=== PATIENT | female | born 1970 | race American Indian/Alaskan Native ===

== ENCOUNTER 2022-06-19 07:00 | Day surgery (SDC) | payer MEDICAID, OTHER ==
[2022-06-19] MEDS ORDERED: LIDOCAINE (1%) 10 MG/1 ML VIAL 20 ML MDV ONE (07:21)
[2022-06-19] MEDS ORDERED: BUPIVACAINE/PF (0.25%) 2.5 MG/ML 30 ML VIAL INFILTRATI ONE (07:21)
[2022-06-19] MEDS ORDERED: BUPIVACAINE/PF (0.5%) 5 MG/1 ML 30 ML VIAL INFILTRATI ONE (08:23)
[2022-06-19] MEDS ORDERED: LIDOCAINE (1%) 10 MG/1 ML VIAL 20 ML MDV INFILTRATI ONE (08:24)
--- NOTE | 2022-06-19 12:22 | Procedure Note ---
Date of procedure: 06/19/22 Pre-op diagnosis: soft tissue mass suprapubic abdominal wall Post-op diagnosis: same Procedure: excision soft tissue mass suprapubic abdominal wall Findings: Patient identified in preoperative area and operative site marked. She was taken back to the minor procedure room and the abdominal hair was clipped. The area was prepped and draped in the usual sterile fashion and a timeout performed. Local anesthetic was infiltrated into the skin at the intended incision site. An elliptical incision was made over the palpable mass using a 15 blade and dissection carried down through the subcutaneous tissue using the blade. The mass was encountered and dissected from the surrounding normal fatty tissue using sharp and blunt dissection. Once the entire mass was freed from the surrounding structures it was removed from the wound and measured at 3.5 cm. This was fatty and lobulated and grossly appeared as a lipoma. The wound was checked for hemostasis. The wound was irrigated. Hemostasis was ensured. The wound was then closed in a layered fashion. The deep layer was closed with 3-0 Vicryl interrupted sutures. The skin was closed with 4-0 Monocryl subcuticular running stitch and skin glue. Once the glue was dry a small pressure dressing was applied using a 2 x 2 gauze and Tegaderm. The specimen was sent to pathology. At the end of the case all sponge, instrument, sharp counts were correct x2. The patient tolerated the procedure very well. She was discharged home in stable condition. Anesthesia: local Surgeon: MARCK GRAY Estimated blood loss: minimal Pathology: list (mass lower abdominal wall) Specimen disposition: to lab Condition: stable Disposition: other (home)
[2022-06-19 12:23] VITALS: BP 123/93
== END 2022-06-19 07:01 | disposition home or self-care (01) ==
LOC: OR 07:00
PROVIDERS: ATTEND Surgery
DX: R19.09 Other intra-abdominal and pelvic swelling, mass and lump (principal); D17.5 Benign lipomatous neoplasm of intra-abdominal organs; I10 Essential (primary) hypertension; E78.00 Pure hypercholesterolemia, unspecified; Z88.8 Allergy status to other drugs, medicaments and biological substances; Z79.899 Other long term (current) drug therapy; Z98.890 Other specified postprocedural states
CPT/HCPCS: 22903; 88304; J3490